=== PATIENT | female | born 1990 | race Two or more races ===

== ENCOUNTER 2022-12-16 08:45 | Outpatient (CLI) | payer OTHER | END 2022-12-16 09:01 | disposition home or self-care (01) | LOC: RX STUDY 08:45 | PROVIDERS: ATTEND Specialist | DX: R10.9 Unspecified abdominal pain (principal); D25.9 Leiomyoma of uterus, unspecified ==

== ENCOUNTER → 2024-08-29 | Emergency (ER) | payer OTHER ==
[~2024-08-29] VITALS: Ht 157.5 cm; Wt 56.7 kg
[~2024-08-29] MED LIST: DILTIAZEM HCL 25 MG/5 ML VIAL IV STA
[2024-08-29 18:54] LABS: BASO % 0.3 % (0.1-1.2); EOS # 0.06 (0.04-0.54); EOS % 0.9 % (0.7-7.0); HEMATOCRIT 30.1 % (34.1-44.9); HEMOGLOBIN 10.3 g/dL (11.2-15.7); LYMPH % 35.8 % (19.3-53.1); MEAN CORPUSCULAR HEMOGLOBIN 29.3 pg (25.6-32.2); MONO % 7.5 % (4.7-12.5); NEUT # 3.71 (1.56-6.13); NEUT % 55.4 % (34.0-71.1); PLATELET COUNT 265 K/uL (163-369); RED BLOOD COUNT 3.51 M/uL (3.93-5.22)
[2024-08-29 19:44] LABS: PH,URINE 6.5 (5.0-8.0); URINE APPEARANCE Clear; URINE BILIRRUBIN Negative (NEGATIVE); URINE BLOOD Negative; URINE COLOR Yellow; URINE GLUCOSE Negative (NEGATIVE); URINE LEUKOCYTE Negative; URINE NITRATE Negative; URINE PROTEIN Negative (NEGATIVE); URINE UROBILINOGEN 0.2 E.U./dl
[2024-08-29 19:47] LABS: URINE BACTERIA 23.2 uL (0.0-1933); URINE EPITHELIAL CELLS 3.1 uL (0.0-38.8); URINE RBC 4.7 uL (0.0-20.8); URINE WBC 3.6 uL (0.0-23.2)
[2024-08-29 19:50] LABS: URINE KETONE 40 (NEGATIVE)
[2024-08-29 20:35] LABS: ALBUMIN 4.1 gm/dL (3.4-5.0); BILIRUBIN TOTAL 0.36 mg/dL (0.3-1.2); CALCIUM 9.5 mg/dL (8.5-10.1); CREATININE SERUM 0.54 mg/dL (0.55-1.02); GFR 128.47; GLOBULINA 4.1 G/DL (2.4-3.5); POTASSIUM 3.63 mEq/L (3.5-5.1); TOTAL PROTEIN 8.2 gm/dL (6.4-8.2)
[2024-08-29 21:45] LABS: INR 0.98; PARTIAL THROMBOPLASTIN TIME 25.3 SECONDS (22.0-34.0); PROTHROMBIN TIME 10.7 SECONDS (9.0-11.5)
== END | disposition home or self-care (01) ==
LOC: ER 15:56
PROVIDERS: General Practice
DX: O20.8 Other hemorrhage in early pregnancy (principal); Z3A.01 Less than 8 weeks gestation of pregnancy; Z88.6 Allergy status to analgesic agent; Z91.013 Allergy to seafood

== ENCOUNTER 2024-08-31 05:38 | Day surgery (SDC) | payer OTHER ==
[2024-08-31] MEDS ORDERED: CEFAZOLIN SODIUM 1,000 MG VIAL ONE (08:30)
[2024-08-31] MEDS ORDERED: POVIDONE-IODINE 118 ML BOTT TOP ONE (08:48)
[2024-08-31] MEDS ORDERED: OXYTOCIN 10 UNITS/ML VIAL ONE (09:33)
[2024-08-31] MEDS ORDERED: ONDANSETRON HCL 2 MG/ML VIAL ONE (10:19)
[2024-08-31] MEDS ORDERED: ONDANSETRON HCL 2 MG/ML VIAL IV ONE (10:25)
== END 2024-08-31 15:10 | disposition home or self-care (01) ==
LOC: CIR.AMB 05:38
PROVIDERS: ATTEND Specialist
DX: O02.1 Missed abortion (principal); Z91.013 Allergy to seafood